=== PATIENT | female | born 1965 | race Caucasian/White ===

== ENCOUNTER → 2018-06-18 | Outpatient (CLI) | payer BC ==
[~2018-06-18] MED LIST: AMOXICILLIN 8751 TAB PO; BENADRYL25 M2 PO; BROMELAIN500 MG; CHLOR-TAB; CRANBERRY400 M1; IRON325 M1 PO; L-LYSINE500 MG PO; MAGNESIUM250 M1 PO; MOTRIN 600600 MG/TAB; MULTIPLE VITAMI1 CAP PO; PERCOCET 325 MG1 TA2 PO; PROBIOTIC FORMU1 CAP PO; SEA KELP; SUPER B COMPLEX1 TA2 PO; TYLENOL 500MG500 MG PO; VITAMIN B COMPL1 T16; VITAMIN D31000 IU; VITAMIN E 400 U4001
== END ==
LOC: MC.RAD 06:54
DX: Z12.31 Encounter for screening mammogram for malignant neoplasm of breast (principal)

== ENCOUNTER → 2018-11-18 | Outpatient (CLI) | payer BC | LOC: COL.RAD 10:18 | DX: D25.9 Leiomyoma of uterus, unspecified (principal) ==

== ENCOUNTER → 2018-11-29 | Outpatient (CLI) | payer BC | LOC: COL.RAD 07:14 | DX: D18.03 Hemangioma of intra-abdominal structures (principal); D25.9 Leiomyoma of uterus, unspecified | CPT/HCPCS: Q9967 ==

== ENCOUNTER → 2019-02-17 | Outpatient (CLI) | payer BC | LOC: COL.RAD 08:58 | DX: M19.079 Primary osteoarthritis, unspecified ankle and foot (principal) | CPT/HCPCS: A9503 ==

== ENCOUNTER → 2019-05-09 | Outpatient (CLI) | payer BC | LOC: COL.RAD 07:06 | DX: M47.27 Other spondylosis with radiculopathy, lumbosacral region (principal); M51.17 Intervertebral disc disorders with radiculopathy, lumbosacral region; M48.07 Spinal stenosis, lumbosacral region; M43.17 Spondylolisthesis, lumbosacral region ==

== ENCOUNTER → 2021-08-27 | Outpatient (CLI) | payer BC | LOC: COL.RAD 07:50 | DX: M25.541 Pain in joints of right hand (principal); M25.542 Pain in joints of left hand | CPT/HCPCS: J3301; Q9967 ==

== ENCOUNTER → 2022-04-21 | Outpatient (CLI) | payer BC | LOC: COL.RAD 08:34 | DX: M18.0 Bilateral primary osteoarthritis of first carpometacarpal joints (principal) | CPT/HCPCS: J3301; Q9967 ==

== ENCOUNTER → 2022-08-01 | Outpatient (CLI) | payer BC | LOC: COL.RAD 07:42 | DX: M79.645 Pain in left finger(s) (principal); M79.644 Pain in right finger(s) | CPT/HCPCS: J3301; Q9967 ==

== ENCOUNTER → 2022-12-24 | Outpatient (CLI) | payer BC | LOC: MC.RAD 09:16 | DX: Z12.31 Encounter for screening mammogram for malignant neoplasm of breast (principal) ==